=== PATIENT | female | born 2005 | race Caucasian/White ===

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

== ENCOUNTER 2025-03-17 12:26 | Emergency (ER) | payer BC, SELFPAY ==
[2025-03-17] VITALS (11 sets, daily range): BP systolic 117–144; BP diastolic 70–91; PULSE 98–140; RESP 12–20; TEMP 37.6–38.9; O2SAT 93–99
--- NOTE | ~2025-03-17 | XR_ITS ---
EXAMINATION: XR chest 2V 03/17/2025 13:27 INDICATION: Fall. Fever. Tachycardia TECHNIQUE:Frontal and lateral images of the chest were obtained. COMPARISON: 09/14/2006 FINDINGS: The lungs are clear. The cardiomediastinal silhouette is within normal limits. There are no pleural effusions. There is no pneumothorax suspected. IMPRESSION: 1: NO ACUTE CARDIOPULMONARY DISEASE. Reviewed, dictated and finalized at location Q.
--- NOTE | ~2025-03-17 | CT_ITS ---
EXAMINATION: CT chest abdomen pelvis w con DATE: 03/17/2025 15:05 CDT INDICATION: Fall. Fever TECHNIQUE: Computed tomography (CT) of the chest, abdomen, and pelvis was performed without intravenous contrast. The dose-length product was 854.85 mGy-cm. COMPARISON: None FINDINGS: CHEST CT: Heart is not enlarged. No enlarged mediastinal or hilar lymph nodes. Small amount of residual thymic tissue. Thoracic aorta is not aneurysmal and is unremarkable. Small right-sided pleural effusion. No pneumothorax. Tiny left- sided pleural effusion. Small patchy opacities in the lower lobes. ABDOMEN/PELVIS CT: Small to moderate amount of nonspecific fluid and fat stranding scattered throughout the abdomen and pelvis. Liver, gallbladder, spleen, adrenal glands, pancreas and kidneys are unremarkable. Abdominal aorta is not aneurysmal. Bladder is unremarkable. Uterus is grossly unremarkable. 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 Indeterminant 8.8 x 12.3 x 7.7 cm heterogeneous masslike structure in the pelvis. IMPRESSION: 1. Indeterminant 8.8 x 12.3 x 7.7 cm heterogeneous masslike structure in the pelvis. Differential includes but is not limited to an inflammatory/infectious process or malignant process. A pelvic ultrasound is recommended for further assessment. 2. Small right-sided pleural effusion. 3. Tiny left-sided pleural effusion. 4. Small patchy opacities in the lower lobes. 5. 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 Reviewed, dictated and finalized at location Q. IMPRESSION: 1. Indeterminant 8.8 x 12.3 x 7.7 cm heterogeneous masslike structure in the pe lvis. Differential includes but is not limited to an inflammatory/infectious pr ocess or malignant process. A pelvic ultrasound is recommended for further asse ssment. 2. Small right-sided pleural effusion. 3. Tiny left-sided pleural effusion. 4. Small patchy opacities in the lower lobes. 5. 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
--- OUTSIDE RECORDS SUMMARY | 2025-03-17 12:29 | XMS_ITS | Clinical Summary ---
Author Organization [facility] Address [address] [place] [address] Care Team Providers Care Patent Engineer Name Role Phone Stanton Stock MD Primary Care Provider [phone] Source Comments [facility],non-owned Affiliates and Associated Physician Practices is amultiple site organization consisting of ambulatory clinics and hospital sitesin [place], [place] and [place]. This disclosure is being madepursuant to the Care Everywhere program and may not contain all information available regarding this patient. Last updated 18.[facility] Allergies No known active allergies Medications * Be aware that medications may not be up to date on this document. Alwaysverify current medications with the patient. 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 Gender Identity Not on file Sexual Orientation Not on file Last Filed Vital Signs Vital Sign Reading Time Taken Comments Blood Pressure - - Pulse - - Temperature - - Respiratory Rate - - Oxygen Saturation - - Inhaled Oxygen Concentration - - Weight 51.9 kg (114 lb 6.7 oz) 10/27/2016 2:13 P M CDT Height 162 cm (5' 3.78) 10/27/2016 2:13 PM CDT Body Mass Index 19.78 10/27/2016 2:13 PM CDT Plan of Treatment Health Maintenance Due Date Last Done Comments HIV SCREENING 11/23/2019 HPV VACCINE (1 - 3-dose series) 11/23/2019 CHLAMYDIA/GONORRHEA SCREENING 2020 MENINGOCOCCAL (Group B) VACC INE SHARED DECISION-MAKING (1 of 2 - Standard) 2020 HEPATITIS C SCREENING 11/18/2022 DTAP/TDAP/TD VACCINES (1 - Tdap) 11/23/2023 HEPATITIS B VACCINE (1 of 3 - 19+ 3-dose series) 11/23/2023 COVID-19 VACCINE (1 - 2023-2 5 season) 2024 DEPRESSION SCREENING 07/27/2024 INFLUENZA VACCINE (#1) 2025 ZOSTER VACCINE (1 of 2) 2054 HIB VACCINE Aged Out No longer eligi ble based on patient's age to complete this topic MENINGOCOCCAL GROUPS A/C/Y/W VACCINE Aged Out No longer eligible b ased on patient's age to complete this topic PNEUMOCOCCAL VACCINE Aged Out No long er eligible based on patient's age to complete this topic Insurance [facility] Care Teams Patent Engineer Relationship Specialty Start Date End Date Stanton Stock MD [address] [place] [id number] PCP - General Pediatrics 08/30/18
--- NOTE | 2025-03-17 12:38 | ECG_ITS ---
Test Date: 2025-03-17 12:46:03 Measurements Intervals [place] Rate: 135 P: 58 CO: 134 QRS: 43 QRSD: 80 T: 46 QT: 268 QTc: 403 Interpretive Statements SINUS TACHYCARDIA BASELINE WANDER- V4-V6 ABNORMAL ECG No previous ECG available for comparison Electronically Signed On 03-17-2025 12:55:37 CDT by Paras Kerr D.O.
[2025-03-17 12:50] LABS: BEDSIDEPREGUCG Negative (Negative)
[2025-03-17 12:56] LABS: Add Urine Microscopic? YES; Appearance Urine Turbid (Clear); Glucose Urine UA Trace mg/dL (Negative); Leukocyte Esterase Ur Trace LEU/UL (Negative); Nitrate Urine Negative (Negative); Non Pathogenic Casts 0-2; Specific Grav Ur 1.022 (1.001-1.035)
[2025-03-17] MEDS: ACETAMINOPHEN 325 MG TABLET 650 MG PO (13:01)
[2025-03-17] MEDS: SODIUM CHLORIDE 0.9% IV 1,000 ML 999 ML IV CONT (13:06)
[2025-03-17] MEDS: MORPHINE SULFATE (*CRX) 2 MG/ML INJ IV PUSH (13:08)
--- OUTSIDE RECORDS SUMMARY | 2025-03-17 13:18 | XMS_ITS | Clinical Summary ---
Author Organization [facility] Address [address] [place] [address] Care Team Providers Care Reliability Technician Name Role Phone Stanton Stock MD Primary Care Provider [phone] Source Comments [facility],non-owned Affiliates and Associated Physician Practices is amultiple site organization consisting of ambulatory clinics and hospital sitesin [place], [place], [place] and [place]. This disclosure is being madepursuant to the Care Everywhere program and may not contain all information available regarding this patient. 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
[2025-03-17 13:19] LABS: Hematocrit 40.7 % (37.0-47.0); Hemoglobin 13.5 g/dL (12.0-15.0); Immature Granulocyte Percent A 0.4 % (0-0.5); Lymphocytes Absolute Auto 1.45 K/mm3 (0.9-3.2); Mean Corpuscular HGB Conc 33.2 g/dl (32-36); Mean Corpuscular Hemoglobin 30.2 pg (26-34); Mean Corpuscular Volume 91.1 fl (80-100); Nucleated Red Blood Cells Absolute Auto 0.000 K/mm3 (0.0-0.012); Nucleated Red Blood Cells Perc 0.0 % (0.0-0.2); Platelet Count Result 382 k/mm3 (150-375); Red Blood Count 4.47 M/mm3 (4.2-5.4); White Blood Count 19.2 K/mm3 (4.5-10.0)
[2025-03-17 13:32] LABS: INR 1.1; Prothrombin Time 14.4 Seconds (11.1-14.7)
[2025-03-17 13:33] LABS: Partial Thromboplastin Time 33.3 Seconds (22.3-36.8)
[2025-03-17 13:52] LABS: Alanine Aminotransferase 15 U/L (6-35); Albumin Level 3.7 g/dL (3.5-5.1); Alkaline Phosphatase 88 U/L (38-126); Anion Gap 8 mmol/L (4-12); Aspartate Amino Transferase 45 U/L (14-36); Bilirubin,Total 1.2 mg/dL (0.2-1.3); Blood Urea Nitrogen 13 mg/dL (7-17); Calcium 8.9 mg/dL (8.4-10.2); Carbon Dioxide 27 mmol/L (22-30); Chloride 102 mmol/L (98-107); Estimated CRCL calculation 119 ml/min; Estimated Glomerular Filt Rate > 60; Glucose 112 mg/dL (65-110); Lipase 27 U/L (23-300); Potassium 3.6 mmol/L (3.4-5.0); Sodium 137 mmol/L (137-145); Total Protein 7.2 g/dL (6.3-8.2)
--- NOTE | 2025-03-17 14:26 | ED.GENADULT ---
HPI - General Adult General Chief complaint: Fall Stated complaint: 03/14 fell thinks she pulled muscle in abd/side Time Seen by Provider: 03/17/25 12:32 History of Present Illness HPI narrative: Patient is a 19-year-old female who presents to the ER with fever and abdominal pain. On 03/14 days ago she was running in a field when she tripped and fell forward onto her abdomen. She developed some but has no left lateral upper abdominal pain but did not think much of it. She has had persistent discomfort with physical movement since then. She began to develop fever 24 hours later. She has no exertional dyspnea. No urinary frequency urgency or dysuria. No new productive cough. She started her menstrual period today. Related Data Allergies Allergy/AdvReac Type Severity Reaction Status Date / Time No Known Allergies Allergy Unknown Verified 03/17/25 12:42 Review of Systems Review of Systems: All systems reviewed & are unremarkable except as noted in HPI and below Constitutional: Constitutional: Reports no additional constitutional complaints Cardiovascular: Cardiovascular: Reports no additional cardiovascular complaints Respiratory: Respiratory: Reports no additional respiratory complaints Gastrointestinal: Gastrointestinal: Reports no additional gastrointestinal complaints Genitourinary: Genitourinary: Reports no additional female genitourinary complaints PMFSH Past Medical History Medical History (Updated 03/17/25 @ 17:05 by Juan Teixeira MD) Healthy female adult Surgical History Surgical History (Updated 03/17/25 @ 14:53 by Juan Teixeira MD) No pertinent past surgical history Exam Narrative: GENERAL: Well-appearing, well-nourished, and in no acute distress. HEAD: Normocephalic, atraumatic. ENT: Mucous membranes moist. CHEST: Clear to auscultation. No respiratory distress. HEART: Regular rate and rhythm. Normal peripheral pulses. ABDOMEN: Soft, mild discomfort with palpation over epigastrium quadrants but guarding, nondistended. No bruising of the abdominal wall. EXTREMITIES: Normal range of motion. No edema. SKIN: Warm, dry, no rash. NEURO: Alert and oriented x3. PSYCH: Normal mood and affect. Course Course Emergency Course: Patient educated on imaging and lab findings. Unable to get timely ultrasound. Patient accepted for transfer to [facility] ER by Dr. Funk. Will add on blood cultures and give Zosyn. Tansfer by EMS. Vital Signs Vital signs: Vital Signs Temperature 100.2 F H 03/17/25 12:36 Pulse Rate 140 H 03/17/25 12:36 Respiratory Rate 20 03/17/25 12:36 Blood Pressure 144/91 H 03/17/25 12:36 Pulse Oximetry 99 03/17/25 12:36 Oxygen Delivery Room Air 03/17/25 12:36 Temperature 99.6 F 03/17/25 14:36 Pulse Rate 117 H 03/17/25 16:36 Respiratory Rate 15 03/17/25 16:36 Blood Pressure 124/75 03/17/25 16:36 Pulse Oximetry 96 03/17/25 16:36 Oxygen Delivery Room Air 03/17/25 12:36 Medical Decision Making Vital Signs Vital Signs: Vital Signs Temperature 100.2 F H 03/17/25 12:36 Pulse Rate 140 H 03/17/25 12:36 Respiratory Rate 20 03/17/25 12:36 Blood Pressure 144/91 H 03/17/25 12:36 Pulse Oximetry 99 03/17/25 12:36 Oxygen Delivery Room Air 03/17/25 12:36 Temperature 99.6 F 03/17/25 14:36 Pulse Rate 117 H 03/17/25 16:36 Respiratory Rate 15 03/17/25 16:36 Blood Pressure 124/75 03/17/25 16:36 Pulse Oximetry 96 03/17/25 16:36 Oxygen Delivery Room Air 03/17/25 12:36 Lab Data 03/17/25 13:09 03/17/25 13:09 Labs: Lab Results 03/17/25 03/17/25 03/17/25 Range/Units 12:46 12:49 13:09 WBC 19.2 H (4.5-10.0) K/mm3 RBC 4.47 (4.2-5.4) M/mm3 Hgb 13.5 (12.0-15.0) g/dL Hct 40.7 (37.0-47.0) % MCV 91.1 (80-100) fl MCH 30.2 (26-34) pg MCHC 33.2 (32-36) g/dl RDW 12.6 (11.5-14.5) % Plt Count 382 H (150-375) k/mm3 MPV 9.0 (7.4-10.4) fl Immature Gran % (Auto) 0.4 (0-0.5) % Neut % (Auto) 85.5 H (45.5-73.1) % Lymph % (Auto) 7.6 L (18.3-44.2) % [place] % (Auto) 4.8 (2.6-8.5) % Eos % (Auto) 1.5 (0-4.4) % Baso % (Auto) 0.2 (0.2-1.2) % Lymph # (Auto) 1.45 (0.9-3.2) K/mm3 Gibson # (Auto) 0.9 H (0.1-0.6) K/mm3 Eos # (Auto) 0.3 (0-0.3) K/mm3 Baso # (Auto) 0.0 (0.0-0.1) K/mm3 Abs Immat Gran (auto) 0.08 H (0.00-0.031) K/mm3 Absolute Neuts (auto) 16.4 H (1.3-6.7) K/mm3 Absolute Nucleated RBC 0.000 (0.0-0.012) K/mm3 Nucleated RBC % 0.0 (0.0-0.2) % PT 14.4 (11.1-14.7) Seconds INR 1.1 APTT 33.3 (22.3-36.8) Seconds Sodium 137 (137-145) mmol/L Potassium 3.6 (3.4-5.0) mmol/L Chloride 102 (98-107) mmol/L Carbon Dioxide 27 (22-30) mmol/L Anion Gap 8 (4-12) mmol/L BUN 13 (7-17) mg/dL Creatinine 0.71 (0.7-1.0) mg/dL Estim Creat Clear Calc 119 ml/min Estimated GFR > 60 (59 - ) Glucose 112 H (65-110) mg/dL Lactic Acid 2.0 (0.7-2.0) mmol/L Calcium 8.9 (8.4-10.2) mg/dL Total Bilirubin 1.2 (0.2-1.3) mg/dL AST 45 H (14-36) U/L ALT 15 (6-35) U/L Alkaline Phosphatase 88 (38-126) U/L Total Protein 7.2 (6.3-8.2) g/dL Albumin 3.7 (3.5-5.1) g/dL Lipase 27 (23-300) U/L Urine Color Dark yellow (Yellow) Urine Appearance Turbid H (Clear) Urine pH 6.0 (5.0-9.0) Ur Specific [place] 1.022 (1.001-1.035) Urine Protein 1+ H (Negative) mg/dL Urine Glucose (UA) Trace H (Negative) mg/dL Urine Ketones Trace H (Negative) mg/dL Ur Blood (Man) 3+ H (Negative) Urine Nitrate Negative (Negative) Urine Bilirubin 1+ H (Negative) Urine Urobilinogen 2.0 H (<2.0) mg/dL Leukocyte Esterase Rfl Trace H (Negative) YUE/UL Urine RBC 21-50 H (0-2) /hpf Urine WBC 0-5 (0-3) /hpf Ur Squamous Epith Cells Few (Few) /hpf Urine Bacteria None seen /hpf Urine Casts 0-2 POC Urine HCG, Qual Negative (Negative) Influenza A (RT-PCR) (Negative) Influenza B (RT-PCR) (Negative) RSV (RT-PCR) (Negative) SARS-CoV-2 RNA (RT-PCR) (Negative) 03/17/25 Range/Units 13:50 WBC (4.5-10.0) K/mm3 RBC (4.2-5.4) M/mm3 Hgb (12.0-15.0) g/dL Hct (37.0-47.0) % MCV (80-100) fl MCH (26-34) pg MCHC (32-36) g/dl RDW (11.5-14.5) % Plt Count (150-375) k/mm3 MPV (7.4-10.4) fl Immature Gran % (Auto) (0-0.5) % Neut % (Auto) (45.5-73.1) % Lymph % (Auto) (18.3-44.2) % Gibson % (Auto) (2.6-8.5) % Eos % (Auto) (0-4.4) % Baso % (Auto) (0.2-1.2) % Lymph # (Auto) (0.9-3.2) K/mm3 [place] # (Auto) (0.1-0.6) K/mm3 Eos # (Auto) (0-0.3) K/mm3 Baso # (Auto) (0.0-0.1) K/mm3 Abs Immat Gran (auto) (0.00-0.031) K/mm3 Absolute Neuts (auto) (1.3-6.7) K/mm3 Absolute Nucleated RBC (0.0-0.012) K/mm3 Nucleated RBC % (0.0-0.2) % PT (11.1-14.7) Seconds INR APTT (22.3-36.8) Seconds Sodium (137-145) mmol/L Potassium (3.4-5.0) mmol/L Chloride (98-107) mmol/L Carbon Dioxide (22-30) mmol/L Anion Gap (4-12) mmol/L BUN (7-17) mg/dL Creatinine (0.7-1.0) mg/dL Estim Creat Clear Calc ml/min Estimated GFR (59 - ) Glucose (65-110) mg/dL Lactic Acid (0.7-2.0) mmol/L Calcium (8.4-10.2) mg/dL Total Bilirubin (0.2-1.3) mg/dL AST (14-36) U/L ALT (6-35) U/L Alkaline Phosphatase (38-126) U/L Total Protein (6.3-8.2) g/dL Albumin (3.5-5.1) g/dL Lipase (23-300) U/L Urine Color (Yellow) Urine Appearance (Clear) Urine pH (5.0-9.0) Ur Specific [place] (1.001-1.035) Urine Protein (Negative) mg/dL Urine Glucose (UA) (Negative) mg/dL Urine Ketones (Negative) mg/dL Ur Blood (Man) (Negative) Urine Nitrate (Negative) Urine Bilirubin (Negative) Urine Urobilinogen (<2.0) mg/dL Leukocyte Esterase Rfl (Negative) YUE/UL Urine RBC (0-2) /hpf Urine WBC (0-3) /hpf Ur Squamous Epith Cells (Few) /hpf Urine Bacteria /hpf Urine Casts POC Urine HCG, Qual (Negative) Influenza A (RT-PCR) Negative (Negative) Influenza B (RT-PCR) Negative (Negative) RSV (RT-PCR) Negative (Negative) SARS-CoV-2 RNA (RT-PCR) Negative (Negative) Imaging Data Radiologist's impression: ITS Impressions Chest X-Ray 03/17/25 13:33 IMPRESSION: 1: NO ACUTE CARDIOPULMONARY DISEASE. Chest/Abdomen/Pelvis CT 03/17/25 15:00 IMPRESSION: 1. Indeterminant 8.8 x 12.3 x 7.7 cm heterogeneous masslike structure in the pelvis. Differential includes but is not limited to an inflammatory/infectious process or malignant process. A pelvic ultrasound is recommended for further assessment. 2. Small right-sided pleural effusion. 3. Tiny left-sided pleural effusion. 4. Small patchy opacities in the lower lobes. 5. 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 ADDENDUM: 03/17/25 1531 This is an addendum to a previously dictated report. Impression #6: 6.Small to moderate amount of nonspecific fluid and fat stranding scattered throughout the abdomen and pelvis. Dr. Teixeira, the emergency room physician, taking care of the patient was notified about the findings on 03/17/2025 3:[address] Fitzgerald. Critical Care Time Critical Care Time Critical Care Time: Yes Total Critical Care Time: 35 Discharge Plan Discharge Clinical Impression: Blunt abdominal trauma, Pelvic mass, Fluid filled abdomen Patient Disposition: Acute Care Hospital Condition: Stable Patient Language: Danish Prescriptions: No Action cyclobenzaprine 10 mg tablet 10 mg PO HS PRN (Reason: muscle spasm) Qty: 10 0RF Follow-up/Referrals: Yoli,HEIDI Bourne [Primary Care Provider, Unknown]
[2025-03-17 15:32] LABS: Influenza A QL RT-PCR Negative (Negative); Influenza B QL RT-PCR Negative (Negative); RSV RNA, RT-PCR Negative (Negative); SARS-CoV-2 RNA PCR Negative (Negative)
[2025-03-17] MEDS: PIPERACILLIN/TAZOBACTAM SOD 3.375 GM in SODIUM CHLORIDE 0.9% IV 50 ML 100 ML IVPB (17:27)
--- NOTE | 2025-03-17 20:02 | PC.NURSE ---
Multiple attempts at ground transport have not been successful. Updated patient and her mother that we will be arranging flight transport to [facility]. All questions answered. Pt remains stable and on full monitors.
--- NOTE | 2025-03-17 20:10 | PC.NURSE ---
Report given to flight crew, all questions answered. Patient stable at time of transport.
--- NOTE | 2025-03-17 20:14 | PC.NURSE ---
Updated [facility] that patient coming via air evac ETA 12 mins
== END 2025-03-17 20:15 | disposition short-term general hospital (02) ==
PROVIDERS: Physician Assistant; Emergency Provider Emergency Medicine; PCP Physician Assistant
DX: S39.91XA Unspecified injury of abdomen, initial encounter (principal); N94.9 Unspecified condition associated with female genital organs and menstrual cycle; Z20.822 Contact with and (suspected) exposure to COVID-19; R00.0 Tachycardia, unspecified; W01.0XXA Fall on same level from slipping, tripping and stumbling without subsequent striking against object, initial encounter
CPT/HCPCS: 36415; 71046; 71260; 74177; 80053; 81001; 81025; 83605; 83690; 85025; 85610; 85730; 87040; 87637; 93005; 96361; 96365; 96375; 99285; A9270; J2270; J2543; J7030; Q9967